=== PATIENT | female | born 1960 | race Asian ===

== ENCOUNTER 2019-05-06 01:13 | Inpatient (IN) | payer BC ==
[~2019-05-06] VITALS: Ht 167.6 cm; Wt 62.6 kg
--- NOTE | 2019-05-06 01:50 | NUR ---
PATIENT WAS MSE BY DR BOWEN ROOM 05A. PATIENT A & O X3
[2019-05-06] MEDS ORDERED: EPINEPHRINE 1 MG/1 ML AMP ONE (01:59)
[2019-05-06] MEDS ORDERED: predniSONE 50 MG TABLET ONE (01:59)
[2019-05-06] MEDS ORDERED: predniSONE 10 MG TABLET ONE (01:59)
[2019-05-06] MEDS ORDERED: predniSONE 10 MG TABLET PO ONE (02:00)
[2019-05-06] MEDS ORDERED: EPINEPHRINE 1 MG/1 ML AMP SQ ONE (02:00)
--- NOTE | 2019-05-06 02:40 | NUR ---
DR PATEL WAS CALLED SPOKE WITH DR BOWEN. ADMISSION ACCEPTED.
--- NOTE | 2019-05-06 02:43 | NUR ---
RONIT RN CALLED BACK FROM [facility]/TELE UNIT. PATIENT WILL BE ADMITTED TO ROOM 319 [facility].
[2019-05-06] MEDS ORDERED: IV NS 1000 ML 1,000 ML IV PRN (02:44)
[2019-05-06] MEDS ORDERED: ONDANSETRON 4 MG/2 ML VIAL IV PRN (02:45)
[2019-05-06] MEDS ORDERED: MAGNESIUM HYDROXIDE 30 ML LIQUID UDC PO PRN (02:45)
[2019-05-06] MEDS ORDERED: ACETAMINOPHEN 325 MG TABLET PO PRN (02:45)
[2019-05-06] MEDS ORDERED: HYDROCODONE/APAP 5-325MG TABLET PO PRN (02:45)
[2019-05-06] MEDS ORDERED: ROSU10TA2 PO (02:58)
[2019-05-06] MEDS ORDERED: OMAL75SY SQ (02:58)
[2019-05-06] MEDS ORDERED: OMEP20CA11 PO (02:58)
--- NOTE | 2019-05-06 03:53 | NUR ---
Pt. admitted to [facility] , under care of Dr. PATEL Belongs List completed
[2019-05-06 04:00] VITALS: BP 98/54
[2019-05-06] MEDS: methylPREDNISolone SOD SUCC 40 MG/ML VIAL IV SCH ×3 (05:24→17:39)
--- NOTE | 2019-05-06 06:09 | NUR ---
NEW [facility] Admission Resident admitted to [facility] at 0400. Received from ER via stretcher, able to transfer independently, with supervision. Awake, alert and fully oriented. Admission process initiated. Allergy alert. Physical assessment done and recorded. VS taken as well and recorded. no noted skin breakdown aside from widespread urticaria secondary to admitting dx: Severe allergic reactions. All pertinent assesments done, carried out new orders from the doctor. Now running 100cc of NS via L forearm peripheral IV. All due meds given. Provided with refreshments at bedside, as requested. Call light kept within reach and oriented well to room. Will continue to monitor patient and endorse accordingly.
[2019-05-06 11:10] VITALS: BP 111/57
[2019-05-06] MEDS ORDERED: PRED20TA PO (12:58)
[2019-05-06 13:28] LABS: BASOPHILS % (AUTO) 0.3 % (0.0-2.0); HEMATOCRIT 41.2 % (31.2-41.9); HEMOGLOBIN 13.7 g/dL (10.9-14.3); LYMPHOCYTES # (AUTO) 0.4 K/uL (20.0-40.0); LYMPHOCYTES % (AUTO) 5.4 % (20.5-51.5); MEAN CORPUSCULAR HEMOGLOBIN 30.1 uug (24.7-32.8); MEAN CORPUSCULAR HGB CONC 33 g/dL (32.3-35.6); MEAN CORPUSCULAR VOLUME 90.6 fL (75.5-95.3); MONOCYTES # (AUTO) 0.1 K/uL (2.0-10.0); MONOCYTES % (AUTO) 1.2 % (0.0-11.0); NEUTROPHILS # (AUTO) 7.4 K/uL (1.8-8.9); NEUTROPHILS % (AUTO) 93.1 % (38.5-71.5); PLATELET COUNT (AUTO) 215 K/uL (179-408); RED BLOOD CELL COUNT(AUTO) 4.55 MIL/uL (3.63-4.92); WHITE BLOOD COUNT (AUTO) 7.9 K/uL (3.8-11.8)
[2019-05-06 13:41] LABS: MAGNESIUM 2.2 mg/dL (1.8-2.4); POTASSIUM 4.2 mmol/L (3.5-5.1)
[2019-05-06 15:12] VITALS: BP 106/65
--- NOTE | 2019-05-06 17:33 | NUR ---
Pt. discharged home with the boyfriend via private car. No SOB or any distress. IV d/c and IV catheter intact. Pt refused methylprednisone. Explained risk and benefits. Pt continues to refused. Complain of new itchiness and seen by JAYJAY Oneal. Okayed to go home. Discharged instruction given. Addendum: 05/06/19 at 1742 by HOMER HARPER MAYER Pt instructed to go to er for any further severe reactions. pt verbalized understanding. rx given to pt. senior analyst programmer specialist given.
== END 2019-05-06 17:30 | disposition home or self-care (01) | DRG 813 ==
LOC: ER 01:15 → MEDSURG3 03:49
PROVIDERS: ATTEND Nurse Practitioner Acute Care
DX: D69.0 Allergic purpura (principal); T45.0X5A Adverse effect of antiallergic and antiemetic drugs, initial encounter; Y92.019 Unspecified place in single-family (private) house as the place of occurrence of the external cause; L50.1 Idiopathic urticaria; Z79.899 Other long term (current) drug therapy; Z90.10 Acquired absence of unspecified breast and nipple; Z85.3 Personal history of malignant neoplasm of breast
CPT/HCPCS: 36415; 83735; 84100; 85025; 93005; A4663; G0378; J0171; J2405; J2920; J7030; J7512